=== PATIENT | female | born 1965 | race Caucasian/White ===

== ENCOUNTER → 2018-03-05 07:04 | Outpatient (CLI) | payer OTHER, SELFPAY ==
[2018-03-05 09:30] LABS: Alanine Aminotransferase 63 U/L (12-78); Albumin Level 3.8 gm/dL (3.4-5.0); Albumin/Globulin Ratio 1.1 (1.1-1.8); Alkaline Phosphatase 64 U/L (46-116); Anion Gap 17.1 mEq/L (5-15); Aspartate Amino Transferase 43 U/L (15-37); Bilirubin,Total 0.4 mg/dL (0.2-1.0); Blood Urea Nitrogen 18 mg/dL (7-18); Carbon Dioxide 25 mmol/L (21.0-32.0); Chloride 103 mmol/L (98-107); Chol/HDL Ratio 8.7 (1-3.5); Cholesterol 269 mg/dL (140-200); Creatinine,Serum 0.82 mg/dL (0.55-1.02); Estimated Glomerular Filt Rate 73 ml/min (>60); GFR (African American) 88 ML/MIN (>60); Globulin 3.4 gm/dl (1.3-3.2); Glucose 180 mg/dL (74-106); HDL Cholesterol 31 mg/dL (29-89); LDL Cholesterol 186 mg/dL (0-130); Potassium 4.1 mmoL/L (3.5-5.1); Sodium 141 mmol/L (136-145); Total Protein,Serum 7.2 gm/dL (6.4-8.2); Triglycerides 262 mg/dL (30-200); VLDL Cholesterol 52 mg/dL (0-40)
[2018-03-06 11:47] LABS: Hemoglobin A1C 8.1 % (0.0-7.0)
== END ==
PROVIDERS: Visit Provider Family Medicine
DX: E11.9 Type 2 diabetes mellitus without complications (principal); E78.5 Hyperlipidemia, unspecified
CPT/HCPCS: 80053; 80061; 83036

== ENCOUNTER → 2018-07-20 12:34 | Outpatient (CLI) | payer OTHER, SELFPAY ==
[2018-07-20 14:27] LABS: Hemoglobin A1C 7.9 % (0.0-7.0)
[2018-07-20 15:07] LABS: Alanine Aminotransferase 43 U/L (12-78); Albumin Level 3.6 gm/dL (3.4-5.0); Alkaline Phosphatase 76 U/L (46-116); Anion Gap 12.2 mEq/L (5-15); Aspartate Amino Transferase 21 U/L (15-37); Bilirubin,Total 0.4 mg/dL (0.2-1.0); Blood Urea Nitrogen 11 mg/dL (7-18); Calcium 9.3 mg/dL (8.5-10.1); Carbon Dioxide 30 mmol/L (21.0-32.0); Chloride 105 mmol/L (98-107); Chol/HDL Ratio 3.9 (1-3.5); Cholesterol 176 mg/dL (140-200); Creatinine,Serum 0.77 mg/dL (0.55-1.02); Estimated Glomerular Filt Rate 78 ml/min (>60); GFR (African American) 95 ML/MIN (>60); Globulin 3.6 gm/dl (1.3-3.2); Glucose 113 mg/dL (74-106); HDL Cholesterol 45 mg/dL (29-89); LDL Cholesterol 97 mg/dL (0-130); Potassium 4.2 mmoL/L (3.5-5.1); Sodium 143 mmol/L (136-145); Total Protein,Serum 7.2 gm/dL (6.4-8.2); Triglycerides 168 mg/dL (30-200); VLDL Cholesterol 34 mg/dL (0-40)
== END ==
PROVIDERS: PCP Family Medicine; Visit Provider Family Medicine
DX: E11.9 Type 2 diabetes mellitus without complications (principal)
CPT/HCPCS: 36415; 80053; 80061; 83036

== ENCOUNTER → 2019-05-24 08:25 | Outpatient (CLI) | payer OTHER, SELFPAY ==
[2019-05-24 08:52] LABS: Hemoglobin A1C 8.2 % (0.0-7.0)
[2019-05-24 10:12] LABS: Alanine Aminotransferase 63 U/L (12-78); Albumin Level 3.4 gm/dL (3.4-5.0); Alkaline Phosphatase 66 U/L (46-116); Anion Gap 11.5 mEq/L (5-15); Aspartate Amino Transferase 20 U/L (15-37); Bilirubin,Total 0.4 mg/dL (0.2-1.0); Blood Urea Nitrogen 13 mg/dL (7-18); Carbon Dioxide 29 mmol/L (21.0-32.0); Chloride 104 mmol/L (98-107); Chol/HDL Ratio 3.8 (1-3.5); Cholesterol 122 mg/dL (140-200); Creatinine,Serum 0.77 mg/dL (0.55-1.02); Estimated Glomerular Filt Rate 78 ml/min (>60); GFR (African American) 95 ML/MIN (>60); Globulin 3.3 gm/dl (1.3-3.2); Glucose 162 mg/dL (74-106); HDL Cholesterol 32 mg/dL (29-89); LDL Cholesterol 68 mg/dL (0-130); Potassium 4.5 mmoL/L (3.5-5.1); Sodium 140 mmol/L (136-145); Total Protein,Serum 6.7 gm/dL (6.4-8.2); Triglycerides 112 mg/dL (30-200); VLDL Cholesterol 22 mg/dL (0-40)
== END ==
PROVIDERS: Visit Provider Family Medicine
DX: E11.9 Type 2 diabetes mellitus without complications (principal); I10 Essential (primary) hypertension; E78.5 Hyperlipidemia, unspecified
CPT/HCPCS: 36415; 80053; 80061; 83036

== ENCOUNTER → 2019-11-29 08:42 | Outpatient (CLI) | payer OTHER, SELFPAY ==
[2019-11-29 13:29] LABS: Alanine Aminotransferase 48 U/L (9-52); Albumin Level 3.8 g/dL (3.4-5.0); Albumin/Globulin Ratio 1.2 (1.1-1.8); Alkaline Phosphatase 62 U/L (46-116); Anion Gap 14.1 mEq/L (5-15); Aspartate Amino Transferase 24 U/L (15-37); Bilirubin,Total 0.5 mg/dL (0.2-1.0); Blood Urea Nitrogen 22 mg/dL (7-18); Calcium 9.1 mg/dL (8.5-10.1); Carbon Dioxide 28 mmol/L (21.0-32.0); Chloride 106 mmol/L (98-107); Chol/HDL Ratio 3.8 (1-3.5); Cholesterol 130 mg/dL (140-200); Estimated Glomerular Filt Rate 87 ml/min (>60); GFR (African American) 105 ML/MIN (>60); Globulin 3.1 gm/dl (1.3-3.2); Glucose 127 mg/dL (74-106); HDL Cholesterol 34 mg/dL (29-89); LDL Cholesterol 73 mg/dL (0-130); Potassium 4.1 mmoL/L (3.5-5.1); Sodium 144 mmol/L (137-145); Total Protein,Serum 6.9 g/dL (6.4-8.2); Triglycerides 114 mg/dL (30-200); VLDL Cholesterol 23 mg/dL (0-40)
[2019-11-29 18:53] LABS: Hemoglobin A1C 7.2 % (0.0-7.0)
== END ==
LOC: LAB 08:44
PROVIDERS: Visit Provider Family Medicine
DX: E11.9 Type 2 diabetes mellitus without complications (principal); E78.5 Hyperlipidemia, unspecified; I10 Essential (primary) hypertension; Z79.84 Long term (current) use of oral hypoglycemic drugs
CPT/HCPCS: 36415; 80053; 80061; 83036

== ENCOUNTER 2020-07-25 18:35 | Emergency (ER) | payer OTHER, SELFPAY ==
[2020-07-25 19:10] VITALS: BP 132/78; PULSE 80; RESP 18; TEMP 36.7; O2SAT 98; BMI 34.4
--- NOTE | 2020-07-25 19:12 | HMH.EDUTC ---
[facility] [place] Disposition Clinical Impression: Exposure to COVID-19 virus Disposition: Home, Self-Care Condition on Discharge: Good Instructions: Preventing the Spread of Coronavirus Discharge Instructions Additional Instructions: Drink plenty of fluids. Take tylenol for pain or fever. Follow up with your regular doctor. GO TO THE ER FOR ANY WORSENING SYMPTOMS FOLLOW THE DIRECTIONS ON THE COVID-19 HAND OUT THAT WE GAVE YOU REGARDING SELF-ISOLATION UNTIL YOU KNOW YOUR COVID-19 RESULTS Referrals: Hay Petit MD [Primary Care Provider] - Time of Disposition: 19:13 Medical Decision Making - Medical Records Medical records reviewed: No: I reviewed the patient's medical records. - Erasto Inquiry Pt receiving controlled substance: No Vital Signs: 07/25/20 19:10 07/25/20 19:18 Temperature 98.1 F 98.1 F Temperature Source Oral Pulse Rate 80 Pulse Rate [Right Brachial] 80 Respiratory Rate 18 18 Blood Pressure 132/78 Blood Pressure [Right Arm] 132/78 Blood Pressure Mean [Right Arm] 96 Blood Pressure Source [Right Arm] Automatic Cuff Blood Pressure Position [Right Arm] Sitting 02 Sat by Pulse Oximetry 98 Oxygen Delivery Method Room Air Orders (Tests/Meds): ORDERS Category Date Time Status Covid-19 Nasal PCR ([facility]) Routine Lab 07/25/20 19:30 Received [facility] [place] HPI - General Stated complaint: covid test Time Seen by Provider: 07/25/20 19:12 - History of Present Illness Provider Complaint: She is here after being exposed to covid in her household. She denies any symptoms. - Related Data Home Medications Medication Instructions Recorded Confirmed atorvastatin 80 mg tablet 80 mg PO DAILY 08/15/19 10/06/19 diclofenac sodium 25 mg 25 mg PO BID 08/15/19 10/06/19 tablet,delayed release glimepiride 4 mg tablet 4 mg PO DAILY 08/15/19 10/06/19 lisinopril 2.5 mg tablet 2.5 mg PO DAILY 08/15/19 10/06/19 metformin 500 mg tablet 500 mg PO BID 08/15/19 10/06/19 Dapagliflozin Propanediol [Farxiga] 10 mg PO DAILY 09/15/19 10/06/19 Allergies Allergy/AdvReac Type Severity Reaction Status Date / Time No Known Drug Allergies Allergy Unknown Verified 10/06/19 13:20 [NKDA] [facility] History - Hepatitis A Screen Attestation statement:: This patient has been screened for Hepatitis A risk factors. I have reviewed the patient's past medical history: Yes Medical History: Reports:: Diabetes Mellitus Type 2, Hypertension Denies:: Cancer, MRSA, Seizures Laterality Cases: Bilateral: Breast Biopsy Other Surgeries: Yes: Colonoscopy, Other Amputation: No - Social History Smoking Status: Never smoker Alcohol Intake: never Substance Use Type: denies use Occupational Status: employed Family Hx:: No significant family history ROS Obtained: Yes All systems reviewed & no additional complaints - Constitutional Constitutional: Reports system reviewed and no additional complaints, except as docu, Denies chills, Denies fever(s) - Eyes Eyes: Denies eye discharge - ENT Ears, Nose, Mouth, and Throat: Reports system reviewed and no additional complaints, except as docu, Denies dizziness, Denies otalgia, Denies sore throat - Cardiovascular Cardiovascular: Reports system reviewed and no additional complaints, except as docu, Denies chest pain, Denies dyspnea - Respiratory Respiratory: Yes system reviewed and no additional complaints, except as docu, No chest congestion, No cough Physical Exam - General General appearance: alert, in no apparent distress - Head Head exam: atraumatic, normocephalic, normal inspection - Eye Eye exam: Present: normal appearance, PERRL, EOMI - ENT ENT exam: Present: normal exam, normal oropharynx, mucous membranes moist, TM's normal bilaterally, normal external ear exam - Neck Neck exam: Present: normal inspection, full ROM, trachea midline. Absent: meningismus, lymphadenopathy - Chest Chest inspection: Present: normal inspection,
[2020-07-25 19:18] VITALS: BP 132/78; PULSE 80; RESP 18; TEMP 36.7; O2SAT 98
== END 2020-07-25 19:20 | disposition home or self-care (01) ==
PROVIDERS: Emergency Provider Nurse Practitioner Family; PCP Family Medicine
DX: Z20.828 Contact with and (suspected) exposure to other viral communicable diseases (principal); E11.9 Type 2 diabetes mellitus without complications; I10 Essential (primary) hypertension; Z79.899 Other long term (current) drug therapy
CPT/HCPCS: 99201; U0003

== ENCOUNTER → 2020-10-13 09:52 | Outpatient (CLI) | payer OTHER, SELFPAY ==
[2020-10-13 11:05] LABS: Hemoglobin A1C 8.9 % (4.0-6.0)
[2020-10-13 11:45] LABS: Chloride 101 mmol/L (98-107)
[2020-10-13 11:46] LABS: Potassium 4.7 mmoL/L (3.5-5.1); Sodium 138 mmol/L (136-145)
[2020-10-13 11:48] LABS: Alanine Aminotransferase 42 U/L (12-78); Alkaline Phosphatase 85 U/L (38-126); Anion Gap 15.7 mEq/L (5-15); Aspartate Amino Transferase 31 U/L (14-36); Bilirubin,Total 0.6 mg/dl (0.2-1.3); Blood Urea Nitrogen 14 mg/dl (7-17); Carbon Dioxide 26 mmol/L (22.0-30.0); Cholesterol 285 mg/dl (140-200); Estimated Glomerular Filt Rate 104 ml/min (>60); GFR (African American) 126 ML/MIN (>60); Triglycerides 348 mg/dl (30-150); VLDL Cholesterol 70 mg/dL (0-40)
[2020-10-13 11:49] LABS: Albumin Level 4.4 g/dl (3.5-5.0); Albumin/Globulin Ratio 1.4 (1.1-1.8); Calcium 9.8 mg/dl (8.4-10.2); Chol/HDL Ratio 6.3 (1-3.5); Globulin 3.1 g/dL (1.3-3.2); Glucose 256 mg/dl (74-100); HDL Cholesterol 45 mg/dl (40-60); Total Protein,Serum 7.5 g/dl (6.3-8.2)
[2020-10-13 12:00] LABS: Direct LDL Cholesterol 180.24 mg/dL (100-129)
== END ==
PROVIDERS: Visit Provider Family Medicine
DX: E11.9 Type 2 diabetes mellitus without complications (principal); E78.5 Hyperlipidemia, unspecified; I10 Essential (primary) hypertension; Z79.84 Long term (current) use of oral hypoglycemic drugs
CPT/HCPCS: 36415; 80053; 80061; 83036

== ENCOUNTER → 2020-10-27 07:42 | Outpatient (CLI) | payer OTHER, SELFPAY ==
--- NOTE | 2020-10-27 07:49 | CT_ITS ---
PROCEDURE: CT SINUS WO CON CLINICAL HISTORY: ear aches for 6 months Facial pain H/o nasal polyps removed 15 years ago COMPARISON: No exams were available for comparison TECHNIQUE: Axial images obtained with sagittal and coronal reformats. All CT scans at the facility use one or more dose reduction, viz: automated exposure control, ma/kV adjustment per patient size (including targeted exams where dose is matched to indication, i.e. head), or iterative reconstruction technique. FINDINGS: The frontal sinus has an unremarkable appearance. Unremarkable appearing ethmoid sinuses. Lobular mucosal thickening is present in the floor the left maxillary sinus at 17 mm consistent with a retention cyst. There is minimal mucosal thickening of the floor the right maxillary sinus. The ostiomeatal units are patent. There is minimal leftward nasal septal deviation. The sphenoid sinus has an unremarkable appearance. There is some minimal frothy material within the posterior aspect of the left ethmoid sinus. Unremarkable appearing mastoid sinuses. TMJs are unremarkable. No fluid evident within the middle ears. IMPRESSION: Left maxillary sinus retention cyst with minimal mucosal thickening of the right maxillary sinus and minimal frothy material within the left ethmoid sinus posteriorly otherwise negative. No evidence of acute sinusitis. Dictated by: Jeronimo Castellanos MD 10/28/2020 18:32 Jeronimo Castellanos MD in [place] 10/28/2020 18:32
== END ==
LOC: RAD 07:42
PROVIDERS: PCP Family Medicine; Visit Provider Family Medicine
DX: R51.9 Headache, unspecified (principal); Z87.09 Personal history of other diseases of the respiratory system
CPT/HCPCS: 70486

== ENCOUNTER → 2021-06-02 12:35 | Outpatient (CLI) | payer OTHER, SELFPAY ==
[2021-06-02 13:20] LABS: Chloride 100 mmol/L (98-107); Sodium 138 mmol/L (136-145)
[2021-06-02 13:21] LABS: Potassium 4.2 mmoL/L (3.5-5.1)
[2021-06-02 13:23] LABS: Alanine Aminotransferase 29 U/L (12-78); Albumin Level 4.3 g/dl (3.5-5.0); Albumin/Globulin Ratio 1.5 (1.1-1.8); Alkaline Phosphatase 90 U/L (38-126); Anion Gap 14.2 mEq/L (5-15); Aspartate Amino Transferase 25 U/L (14-36); Bilirubin,Total 0.6 mg/dl (0.2-1.3); Blood Urea Nitrogen 16 mg/dl (7-17); Calcium 9.6 mg/dl (8.4-10.2); Carbon Dioxide 28 mmol/L (22.0-30.0); Cholesterol 299 mg/dl (140-200); Estimated Glomerular Filt Rate 87 ml/min (>60); GFR (African American) 105 ML/MIN (>60); Globulin 2.9 g/dL (1.3-3.2); Glucose 225 mg/dl (74-100); Total Protein,Serum 7.2 g/dl (6.3-8.2); Triglycerides 337 mg/dl (30-150); VLDL Cholesterol 67 mg/dL (0-40)
[2021-06-02 13:24] LABS: Chol/HDL Ratio 7.7 (1-3.5); HDL Cholesterol 39 mg/dl (40-60)
[2021-06-02 13:35] LABS: Direct LDL Cholesterol 196.77 mg/dL (100-129)
[2021-06-02 13:59] LABS: Hemoglobin A1C 10.6 % (4.0-6.0)
== END ==
LOC: LAB 12:36
PROVIDERS: Visit Provider Family Medicine
DX: I10 Essential (primary) hypertension (principal); E78.5 Hyperlipidemia, unspecified; E11.9 Type 2 diabetes mellitus without complications; Z79.84 Long term (current) use of oral hypoglycemic drugs
CPT/HCPCS: 36415; 80053; 80061; 83036

== ENCOUNTER → 2021-10-12 11:01 | Outpatient (CLI) | payer OTHER, SELFPAY ==
[2021-10-12 11:45] LABS: Hemoglobin A1C 9.3 % (4.0-6.0)
[2021-10-12 12:17] LABS: Chloride 101 mmol/L (98-107)
[2021-10-12 12:18] LABS: Potassium 4.4 mmoL/L (3.5-5.1); Sodium 140 mmol/L (136-145)
[2021-10-12 12:20] LABS: Alanine Aminotransferase 48 U/L (12-78); Alkaline Phosphatase 72 U/L (38-126); Aspartate Amino Transferase 41 U/L (14-36); Bilirubin,Total 0.4 mg/dl (0.2-1.3); Blood Urea Nitrogen 17 mg/dl (7-17); Estimated Glomerular Filt Rate 74 ml/min (>60); GFR (African American) 90 ML/MIN (>60)
[2021-10-12 12:21] LABS: Albumin Level 4.6 g/dl (3.5-5.0); Albumin/Globulin Ratio 1.6 (1.1-1.8); Anion Gap 16.4 mEq/L (5-15); Calcium 9.9 mg/dl (8.4-10.2); Carbon Dioxide 27 mmol/L (22.0-30.0); Cholesterol 156 mg/dl (140-200); Globulin 2.9 g/dL (1.3-3.2); Glucose 216 mg/dl (74-100); HDL Cholesterol 43 mg/dl (40-60); Total Protein,Serum 7.5 g/dl (6.3-8.2); Triglycerides 256 mg/dl (30-150); VLDL Cholesterol 51 mg/dL (0-40)
[2021-10-12 15:57] LABS: Chol/HDL Ratio 3.6 (1-3.5)
== END ==
PROVIDERS: Visit Provider Family Medicine
DX: I10 Essential (primary) hypertension (principal); E11.9 Type 2 diabetes mellitus without complications; Z79.84 Long term (current) use of oral hypoglycemic drugs
CPT/HCPCS: 36415; 80053; 80061; 83036

== ENCOUNTER → 2022-05-02 07:15 | Outpatient (CLI) | payer OTHER, SELFPAY ==
[2022-05-02 08:43] LABS: Hemoglobin A1C 9.7 % (4.0-6.0)
[2022-05-02 08:47] LABS: Alanine Aminotransferase 36 U/L (12-78); Albumin Level 3.8 g/dl (3.5-5.0); Albumin/Globulin Ratio 1.5 (1.1-1.8); Alkaline Phosphatase 68 U/L (38-126); Anion Gap 12.5 mEq/L (5-15); Aspartate Amino Transferase 30 U/L (14-36); Blood Urea Nitrogen 13 mg/dl (7-17); Calcium 9.3 mg/dl (8.4-10.2); Carbon Dioxide 28 mmol/L (22.0-30.0); Chloride 102 mmol/L (98-107); Chol/HDL Ratio 3.8 (1-3.5); Cholesterol 120 mg/dl (140-200); Estimated Glomerular Filt Rate 74 ml/min (>60); GFR (African American) 89 ML/MIN (>60); Globulin 2.5 g/dL (1.3-3.2); Glucose 208 mg/dl (74-100); HDL Cholesterol 32 mg/dl (40-60); Potassium 4.5 mmoL/L (3.5-5.1); Sodium 138 mmol/L (136-145); Total Protein,Serum 6.3 g/dl (6.3-8.2); Triglycerides 194 mg/dl (30-150); VLDL Cholesterol 39 mg/dL (0-40)
[2022-05-02 08:59] LABS: Bilirubin,Total < 0.1 mg/dl (0.2-1.3)
[2022-05-02 09:05] LABS: Direct LDL Cholesterol 52.28 mg/dL (100-129)
== END ==
PROVIDERS: PCP Family Medicine; Visit Provider Family Medicine
DX: I10 Essential (primary) hypertension (principal); E78.5 Hyperlipidemia, unspecified; E11.9 Type 2 diabetes mellitus without complications; Z79.84 Long term (current) use of oral hypoglycemic drugs
CPT/HCPCS: 36415; 80053; 80061; 83036

== ENCOUNTER → 2022-11-04 11:06 | Outpatient (CLI) | payer OTHER, SELFPAY ==
[2022-11-04 12:22] LABS: Creatinine,Urine Random 135 mg/dL (Not Estab.)
[2022-11-04 12:25] LABS: Alanine Aminotransferase 37 U/L (12-78); Albumin Level 4.3 g/dl (3.5-5.0); Albumin/Globulin Ratio 1.7 (1.1-1.8); Alkaline Phosphatase 72 U/L (38-126); Anion Gap 12.8 mEq/L (5-15); Aspartate Amino Transferase 31 U/L (14-36); Bilirubin,Total 0.5 mg/dl (0.2-1.3); Blood Urea Nitrogen 11 mg/dl (7-17); Carbon Dioxide 29 mmol/L (22.0-30.0); Chloride 102 mmol/L (98-107); Chol/HDL Ratio 3.2 (1-3.5); Cholesterol 122 mg/dl (140-200); Estimated Glomerular Filt Rate 86 ml/min (>60); GFR (African American) 104 ML/MIN (>60); Globulin 2.6 g/dL (1.3-3.2); Glucose 189 mg/dl (74-100); HDL Cholesterol 38 mg/dl (40-60); Microalbumin/Creatinine Ratio 52.2; Potassium 3.8 mmoL/L (3.5-5.1); Sodium 140 mmol/L (136-145); Total Protein,Serum 6.9 g/dl (6.3-8.2); Triglycerides 161 mg/dl (30-150); VLDL Cholesterol 32 mg/dL (0-40)
[2022-11-04 12:36] LABS: Direct LDL Cholesterol 56.55 mg/dL (100-129)
[2022-11-04 13:03] LABS: Hemoglobin A1C 9.9 % (4.0-6.0)
== END ==
PROVIDERS: PCP Family Medicine; Visit Provider Family Medicine
DX: E11.9 Type 2 diabetes mellitus without complications (principal); E78.5 Hyperlipidemia, unspecified; I10 Essential (primary) hypertension; Z79.84 Long term (current) use of oral hypoglycemic drugs
CPT/HCPCS: 36415; 80053; 80061; 82043; 82570; 83036

== ENCOUNTER → 2023-05-12 10:56 | Outpatient (CLI) | payer OTHER, SELFPAY ==
[2023-05-12 11:37] LABS: Chloride 103 mmol/L (98-107); Hemoglobin A1C 8.4 % (4.0-6.0)
[2023-05-12 11:38] LABS: Potassium 4.3 mmoL/L (3.5-5.1); Sodium 140 mmol/L (136-145)
[2023-05-12 11:40] LABS: Alanine Aminotransferase 36 U/L (12-78); Anion Gap 14.3 mEq/L (5-15); Aspartate Amino Transferase 27 U/L (14-36); Blood Urea Nitrogen 16 mg/dl (7-17); Carbon Dioxide 27 mmol/L (22.0-30.0); Estimated Glomerular Filt Rate 74 ml/min (>60); GFR (African American) 89 ML/MIN (>60)
[2023-05-12 11:41] LABS: Albumin Level 4.4 g/dl (3.5-5.0); Albumin/Globulin Ratio 1.7 (1.1-1.8); Alkaline Phosphatase 78 U/L (38-126); Bilirubin,Total 0.4 mg/dl (0.2-1.3); Chol/HDL Ratio 2.8 (1-3.5); Cholesterol 124 mg/dl (140-200); Globulin 2.6 g/dL (1.3-3.2); Glucose 172 mg/dl (74-100); HDL Cholesterol 44 mg/dl (40-60); Triglycerides 121 mg/dl (30-150); VLDL Cholesterol 24 mg/dL (0-40)
[2023-05-12 11:52] LABS: Direct LDL Cholesterol 62.43 mg/dL (100-129)
== END ==
PROVIDERS: PCP Family Medicine; Visit Provider Family Medicine
DX: I10 Essential (primary) hypertension (principal); E78.5 Hyperlipidemia, unspecified; E11.9 Type 2 diabetes mellitus without complications; Z79.84 Long term (current) use of oral hypoglycemic drugs
CPT/HCPCS: 36415; 80053; 80061; 83036

== ENCOUNTER 2023-10-12 06:21 | Day surgery (SDC) | payer OTHER, SELFPAY ==
[2023-10-10 10:54] VITALS: BMI 30.7
[2023-10-12 06:33] VITALS: BP 128/73; PULSE 87; RESP 18; TEMP 36.2; O2SAT 99
[2023-10-12] MEDS: LACTATED RINGERS 1000ML 1,000 ML 25 ML IV (06:33)
--- NOTE | 2023-10-12 06:57 | EXP.ANES.CKL ---
[facility] Disclaimer: The information contained in this section may have been updated after the patient was seen, as this information can be updated by other users. Medical History Diabetes mellitus, type 2 Hypertension Surgical History Hx of sinus surgery Family History Other Family history of cancer Family history of diabetes mellitus type II Family history of hypertension Social History Smoking Status: Never smoker alcohol intake: never substance use type: denies use current occupational status: employed Travel in the last 8 weeks: Inside the [place] caffeine: Yes [facility] Anesthesia Checklist Patient Identification Patient Identification: Arm Band and Family Structural Data Admitted From: Home Planned Operative Procedure/s: Colonoscopy Consent for Planned Operative Procedure(s) Verified: Yes Verified Documents: Surgical Consent and History and Physical NPO Status Verified Time NPO: 00:00 Additional verifications Patient : No Anesthesia Reactions: No Hx Blood Transfusions: No Blood Transfusion Reaction: No Previous Colonoscopy: Yes Airway Assessment Mallampati Score:: Class III C-Spine Mobility Assessed: Yes TMJ Mobility Assessed: Yes Dentition: Good Dentition Neurological Assessment Level of Consciousness: Awake, Appropriate and Follows Commands Hx Seizures: No Numbness or tingling in extremities: No Anesthesia Plan Anesthesia Risk discussed: Yes ASA Class: II Anesthesia Type: MAC Preoperative Comments Pre-Operative Comments: Hypertension/ NIDDM.
--- NOTE | 2023-10-12 07:02 | HMH.SCOPE ---
Procedure: Date: 10/12/23 Patient Date of :: 1965 Procedure Performed:: Total colonoscopy to terminal ileum with multiple polypectomy Indications:: Patient is a 57-year-old female who presents for follow-up surveillance colonoscopy. She had colonoscopy in 2014 with multiple polyps, mostly hyperplastic, however she had 1 serrated adenoma. She underwent follow-up colonoscopy on 09/16/2019 at which time she had multiple hyperplastic polyps. Due to the fact that she had a serrated adenoma recommendations were for 3-year follow-up colonoscopy. Performing Provider:: Rupesh Fofana MD Referring Provider:: Solis Petit MD Sedation:: MAC sedation Procedure:: Patient history was obtained and appropriate physical examination was performed. Patient's medications and allergies were reviewed. Informed consent was obtained after explaining the benefits, alternatives, and risks of the procedure including, but not limited to, bleeding, perforation, missed lesions, and adverse reaction to anesthesia medications. Patient was transported to endoscopy procedure room. Patient was connected to monitoring devices. Throughout the procedure the patient's blood pressure, pulse, and oxygen saturations were monitored continuously. Patient identification and planned procedure were verified by the staff. Patient was positioned in lateral decubitus position. Digital anorectal exam was performed. Variable stiffness Olympus colonoscope was inserted and advanced under direct visualization to the cecum. Adequacy of the colonic preparation was noted. The colonoscope was advanced a short distance into the terminal ileum. The colonoscope was then slowly withdrawn while carefully examining the color, texture, anatomy, and integrity of the mucosoa circumferentially. Within the rectum retroflexion was performed. Colonoscope was then withdrawn. . There was some mucousy stool present within the colon. This was able to be cleared. In the cecum there is a moderately large polyp measuring greater than 10 mm removed with hot snare which required retrieval using Tenorio net after maceration. Also in the cecum there was a small adenomatous polyp removed with cold snare. There was a tiny diminutive polyp which appeared adenomatous in the cecum removed with biopsy forceps. In the descending colon there was a small diminutive adenomatous appearing polyp removed with cold snare. In the sigmoid colon there was a possible hyperplastic polyp removed with biopsy forceps. Retroflexion within the rectum revealed some prolapsing hemorrhoid cushions. Colonoscope was withdrawn. . Findings:: Polyps as noted above. She had what appeared to be 4 adenomatous polyps with the largest being in the cecum measuring greater than 10 mm removed with hot snare. Prolapsing hemorrhoid cushions Recommendations:: Follow-up colonoscopy pending pathology. Likely 2 to 3 years Complications:: None immediately apparent Estimated blood obtained (mL): 3 Colonoscopy Component Colonoscopy Component Was a colonoscopy performed during today's procedure?: Yes Recommended follow up colonoscopy of at least 10 years?: No If no, follow up colonoscopy recommended in ___ years?: See above Reason for not recommending >/= 10 yr follow-up interval?: See above
[2023-10-12 07:21] VITALS: O2SAT 99
[2023-10-12 08:03] VITALS: BP 103/59; PULSE 83; RESP 18; TEMP 36.1; O2SAT 95
[2023-10-12 08:13] VITALS: BP 109/75; PULSE 92; RESP 18; O2SAT 96
[2023-10-12 08:23] VITALS: BP 114/81; PULSE 87; RESP 18; O2SAT 97
[2023-10-12 08:35] VITALS: BP 134/78; PULSE 84; RESP 18; O2SAT 98
[2023-10-12 09:09] LABS: POC Glucose,Bedside 135 (70-110)
== END 2023-10-12 08:45 | disposition home or self-care (01) ==
PROVIDERS: PCP Family Medicine; Visit Provider Surgery
PROC: 0DJD8ZZ Inspection of Lower Intestinal Tract, Via Natural or Artificial Opening Endoscopic (ICD-10-PCS; CPT 45385; principal; 2023-10-12 07:30)
DX: Z12.11 Encounter for screening for malignant neoplasm of colon (principal); Z86.010 Personal history of colon polyps; D12.0 Benign neoplasm of cecum; D12.4 Benign neoplasm of descending colon; E11.9 Type 2 diabetes mellitus without complications
CPT/HCPCS: 45385; 45380; 82962

== ENCOUNTER 2023-11-24 08:35 | Outpatient (CLI) | payer BC, SELFPAY ==
[2023-11-24 09:27] LABS: Creatinine,Urine Random 61 mg/dL (Not Estab.)
[2023-11-24 09:34] LABS: Chloride 104 mmol/L (98-107); Potassium 4.3 mmoL/L (3.5-5.1); Sodium 139 mmol/L (136-145)
[2023-11-24 09:36] LABS: Alanine Aminotransferase 30 U/L (12-78); Aspartate Amino Transferase 31 U/L (14-36); Blood Urea Nitrogen 15 mg/dl (7-17); Estimated Glomerular Filt Rate 102 ml/min (>60); GFR (African American) 124 ML/MIN (>60)
[2023-11-24 09:37] LABS: Albumin Level 4.3 g/dl (3.5-5.0); Albumin/Globulin Ratio 1.6 (1.1-1.8); Alkaline Phosphatase 75 U/L (38-126); Anion Gap 13.3 mEq/L (5-15); Bilirubin,Total 0.4 mg/dl (0.2-1.3); Calcium 9.6 mg/dl (8.4-10.2); Carbon Dioxide 26 mmol/L (22.0-30.0); Cholesterol 127 mg/dl (140-200); Globulin 2.7 g/dL (1.3-3.2); Glucose 216 mg/dl (74-100); Triglycerides 111 mg/dl (30-150); VLDL Cholesterol 22 mg/dL (0-40)
[2023-11-24 09:38] LABS: Chol/HDL Ratio 3.3 (1-3.5); HDL Cholesterol 38 mg/dl (40-60)
[2023-11-24 09:44] LABS: Hemoglobin A1C 9.2 % (4.0-6.0)
[2023-11-24 09:48] LABS: Direct LDL Cholesterol 63.64 mg/dL (100-129)
== END 2023-11-24 23:59 ==
PROVIDERS: PCP Family Medicine; Visit Provider Family Medicine
DX: E11.9 Type 2 diabetes mellitus without complications (principal); E78.5 Hyperlipidemia, unspecified; I10 Essential (primary) hypertension
CPT/HCPCS: 36415; 80053; 80061; 82043; 82570; 83036

== ENCOUNTER 2024-05-24 08:17 | Outpatient (CLI) | payer BC, SELFPAY ==
[2024-05-24 09:08] LABS: Albumin Level 4.1 g/dl (3.5-5.0); Chloride 108 mmol/L (98-107); Sodium 140 mmol/L (136-145)
[2024-05-24 09:11] LABS: Alanine Aminotransferase 23 U/L (12-78); Albumin/Globulin Ratio 1.5 (1.1-1.8); Aspartate Amino Transferase 24 U/L (14-36); Blood Urea Nitrogen 14 mg/dl (7-17); Carbon Dioxide 25 mmol/L (22.0-30.0); Estimated Glomerular Filt Rate 86 ml/min (>60); GFR (African American) 104 ML/MIN (>60); Globulin 2.7 g/dL (1.3-3.2); Total Protein,Serum 6.8 g/dl (6.3-8.2)
[2024-05-24 09:12] LABS: Alkaline Phosphatase 70 U/L (38-126); Bilirubin,Total 0.5 mg/dl (0.2-1.3); Calcium 9.1 mg/dl (8.4-10.2); Chol/HDL Ratio 3.3 (1-3.5); Cholesterol 147 mg/dl (140-200); Glucose 147 mg/dl (74-100); HDL Cholesterol 45 mg/dl (40-60); Triglycerides 199 mg/dl (30-150); VLDL Cholesterol 40 mg/dL (0-40)
[2024-05-24 09:22] LABS: Direct LDL Cholesterol 65.77 mg/dL (100-129)
[2024-05-24 09:46] LABS: Hemoglobin A1C 11.3 % (4.0-6.0)
== END 2024-05-24 23:59 | disposition home or self-care (01) ==
LOC: LAB 08:18
PROVIDERS: PCP Family Medicine; Visit Provider Family Medicine
DX: E78.5 Hyperlipidemia, unspecified (principal); I10 Essential (primary) hypertension; E11.9 Type 2 diabetes mellitus without complications
CPT/HCPCS: 36415; 80053; 80061; 83036

== ENCOUNTER 2024-11-22 08:39 | Outpatient (CLI) | payer BC, SELFPAY ==
[2024-11-22 09:07] LABS: Basophils # 0.1 K/mm3 (0-0.2); Basophils % 0.9 % (0.1-2.0); Eosinophils # 0.2 K/mm3 (0.0-0.4); Eosinophils % 3.8 % (0.1-12.0); Hematocrit 41.9 % (37.0-47.0); Hemoglobin 13.5 g/dL (12.2-16.2); Lymphocytes # 1.8 K/mm3 (0.7-4.5); Mean Corpuscular HGB Conc 32.2 g/dL (31.8-35.4); Mean Corpuscular Hemoglobin 28.8 pg (27.0-31.2); Mean Corpuscular Volume 89.3 fl (81-99); Mean Platelet Volume 9.7 fl (7.4-10.4); Monocytes # 0.4 K/mm3 (0.1-1.0); Monocytes % 7.6 % (1.7-9.3); Neutrophils # 3.1 K/mm3 (1.8-7.8); Neutrophils % 55.3 % (37.0-80.0); Platelet Count 281 K/mm3 (142-424); Red Blood Count 4.69 M/mm3 (4.20-5.40); Red Cell Distribution Width 12.7 % (11.5-17.5); White Blood Count 5.6 K/mm3 (4.8-10.8)
[2024-11-22 09:20] LABS: Creatinine,Urine Random 76 mg/dL (Not Estab.)
[2024-11-22 09:42] LABS: Hemoglobin A1C 7.9 % (4.0-6.0)
[2024-11-22 10:21] LABS: Alanine Aminotransferase 27 U/L (12-78); Albumin Level 4.4 g/dl (3.5-5.0); Alkaline Phosphatase 54 U/L (38-126); Anion Gap 17.9 mEq/L (5-15); Aspartate Amino Transferase 29 U/L (14-36); Bilirubin,Total 0.3 mg/dl (0.2-1.3); Blood Urea Nitrogen 17 mg/dl (7-17); Calcium 9.4 mg/dl (8.4-10.2); Carbon Dioxide 26 mmol/L (22.0-30.0); Chloride 99 mmol/L (98-107); Chol/HDL Ratio 3.4 (1-3.5); Cholesterol 118 mg/dl (140-200); Estimated Glomerular Filt Rate 102 ml/min (>60); GFR (African American) 123 ML/MIN (>60); Globulin 2.2 g/dL (1.3-3.2); Glucose 130 mg/dl (74-100); HDL Cholesterol 35 mg/dl (40-60); Potassium 3.9 mmoL/L (3.5-5.1); Sodium 139 mmol/L (136-145); Total Protein,Serum 6.6 g/dl (6.3-8.2); Triglycerides 121 mg/dl (30-150); VLDL Cholesterol 24 mg/dL (0-40)
[2024-11-22 10:32] LABS: Direct LDL Cholesterol 52.74 mg/dL (100-129)
== END 2024-11-22 23:59 | disposition home or self-care (01) ==
LOC: LAB 08:44
PROVIDERS: PCP Family Medicine; Visit Provider Family Medicine
DX: E78.5 Hyperlipidemia, unspecified (principal); E11.9 Type 2 diabetes mellitus without complications; I10 Essential (primary) hypertension
CPT/HCPCS: 36415; 80053; 80061; 82043; 82570; 83036; 85025

== ENCOUNTER 2025-01-29 12:15 | Outpatient (CLI) | payer BC, SELFPAY ==
--- NOTE | 2025-01-29 12:34 | ECG_ITS ---
APPROVED REPORT Exam: Resting ECG HR:97 bpm ECG Measurements Heart Rate 97 AXES VT 145 P 27 QRSd 84 QRS -3 QT 337 T 14 QTc 392 Conclusion SINUS RHYTHM LOW QRS VOLTAGE IN PRECORDIAL LEADS [QRS DEFLECTION < 1.0 mV IN CHEST LEADS] POSSIBLE ANTERIOR MYOCARDIAL INFARCTION , PROBABLY OLD [30 ms Q WAVE IN V3/V4, OR R < 0.2 mV IN V4] INFERIOR MYOCARDIAL INFARCTION , PROBABLY OLD [40+ ms Q WAVE AND/OR ST/T ABNORMALITY IN II/aVF] ABNORMAL ECG UNCONFIRMED REPORT Electronically signed by : Alexander Puri MD 01/30/2025 09:39:01
[2025-01-29 12:58] LABS: Creatine Kinase 52 U/L (30-135)
[2025-01-29 13:09] LABS: CKMB Relative Index 0.8 U/L (0-4.0); Creatine Kinase MB 0.4 ng/ml (0.0-2.03)
[2025-01-29 13:12] LABS: Troponin I < 0.01 ng/ml (0.00-0.034)
== END 2025-01-29 23:59 | disposition home or self-care (01) ==
LOC: RT 12:16
PROVIDERS: PCP Family Medicine; Visit Provider Physician Assistant
DX: R07.9 Chest pain, unspecified (principal); R94.31 Abnormal electrocardiogram [ECG] [EKG]
CPT/HCPCS: 36415; 82550; 82553; 84484; 93005

== ENCOUNTER 2025-02-18 07:16 | Outpatient (CLI) | payer BC, SELFPAY ==
--- NOTE | 2025-02-18 | CA_ITS ---
APPROVED REPORT Exam: Exercise Treadmill Technologist: Edilia Crump Ht: 5 ft 6 in Wt: 201 lbs BSA: 2.00 m2 HR: 88 bpm BP: 141/86 mmHg Stress Test Details Test: Exercise stress testing was performed using a Matt protocol. HR Resting HR: 88 bpm Max Heart Rate (APMHR): 160 bpm Max HR Achieved: 163 bpm Target HR (85% APMHR): 136 bpm % of APMHR: 102 Recovery HR: 115 bpm HR response to stress: Normal HR response to stress BP Resting BP: 141.0/86.0 mmHg Max BP: 208.0/88.0 mmHg Recovery BP: 159.0/84.0 mmHg BP response to stress: Abnormal hypertensive response to stress. ECG Resting ECG: NSR Stress EC.[address] depression Clinical Exercise duration: 5.08 min Exercise capacity: 7.1 METs Stress ECG Conclusion Symptoms: Shortness of breath with peak exercise. Arrhythmias/Ectopy: None ST-T Changes: 0.[address] segment changes. Conclusion: Average exercise capacity. Hypertensive BP response to exercise. No ECG evidence of ischemia at peak stress. Myoview images are reported separately. Electronically signed by : Jeannine Rosa MD 02/18/2025 13:05:04
--- NOTE | 2025-02-18 07:30 | NM_ITS ---
APPROVED REPORT Exam: Nuclear Stress Test Indication: htn, diabetes, hyperlipidemia, fm hx, c.p., abn ekg Patient Location: Outpatient Stress Tech: Edilia Crump CT Tech:DARNLEL Bruno RT (R)(N)(M) Ht: 5 ft 6 in Wt: 197 lbs Bra Size: 38c HR: 88 bpm BP: 141/86 mmHg BSA: 1.99 m2 TID: 1.09 BMI: 31.7 History: htn, diabetes, hyperlipidemia, fm hx, c.p., abn ekg Procedure: Patient exercised on Matt protocol 5:08 minutes and sec, resting heart rate 88 bpm, resting blood pressure 141/86 mmHg, with exercise maximum heart rate achived was 164 bpm which is 102 % of the maximum predicted heart rate and blood pressure was 200/90 mmHg. Test was stopped due to fatigue. Patient denied any complaint of chest pain. Patient has Average exercise capacity, achieved 7.1 METs of workload on treadmill, the blood pressure response to exercise was Exaggerated. Cardiac Stress and Resting SPECT Images: Cardiac Stress and Resting SPECT images were obtained using technetium 99m Myoview 31.0 mCi stress and 10.45 mCi at rest. Resting and stress imaging in supine and prone positions demonstrate no evidence of fixed or reversible perfusion defects. Gated imaging demonstrates normal global and regional LV systolic function. LVEF is calculated at 64%. Conclusion: No evidence of fixed or reversible perfusion defects. Gated imaging demonstrates normal global and regional LV systolic function. LVEF is calculated at 64%. Of note, the patient had a hypertensive BP response to exercise. BP control is recommended. Electronically signed by : Jeannine Rosa MD 02/18/2025 12:58:50
[2025-02-18] MEDS: ISOTOPE MYOVIEW (PER STUDY) 1 DOSE IV (09:35)
[2025-02-18] MEDS: SODIUM CHLORIDE 0.9% 10ML SYR (RAD ONLY) 10 ML IV ×2 (09:35→09:42)
== END 2025-02-18 23:59 | disposition home or self-care (01) ==
PROVIDERS: PCP Family Medicine; Visit Provider Physician Assistant
DX: R94.31 Abnormal electrocardiogram [ECG] [EKG] (principal); R07.9 Chest pain, unspecified; R42 Dizziness and giddiness
CPT/HCPCS: 78452; 93017; 93018; 93306; A9502

== ENCOUNTER 2025-05-28 08:45 | Outpatient (CLI) | payer BC, SELFPAY ==
--- OUTSIDE RECORDS SUMMARY | 2024-11-25 11:45 | XMS_ITS ---
Author Organization [facility] Address [address] [id number] Care Team Providers Care Wallpaperer Name Role Phone Lea Petit Primary Care Provider Allergies No Known Allergies REASON FOR VISIT checkup and f/u on labs Medications Medication SIG (Take, Route, Fr equency, Duration) Notes Start Date End Date Status Pen Kinderhook 16 31G X 8 MM as directed once daily Activ e Lantus SoloStar 100 UNIT/ML up to 70 units Subcutaneous once daily Active Farxiga 10 MG 1 tab(s) orally once a day Active metFORMIN HCl ER 500 MG 2 tab(s) orally 2 tabs in AM and 1 in PM Active Ozempic (0.25 or 0.5 MG/DOSE) 2 MG/3ML 0.5 mg Subcutaneous once a week Active Losartan Potassium 50 MG 1 tab(s) orally once a day Active Crestor 40 MG 1 tab(s) orally once a day Active OneTouch Ultra 1 TEST STRIP TEST 2 TIMES A DAY OR DIRECTED 10/06/2016 Active GLUCOMETER DIRECTED TEST QD 04/13/2015 Active Ozempic (0.25 or 0.5 MG/DOSE) 2 MG/3ML INJECT 0.25MG SUBCUTANEOUSLY ONCE A WEEK; Duration: 56 Active Vital Signs Blood pressure systolic 120 mm Hg 11/25/19 25 Blood pressure diastolic 70 mm Hg 025 Heart Rate 90 /min 11/25/2024 Height 66 in 11/25/2024 Weight 208.2 lbs 11/25/2024 BMI 33.60 kg/m2 11/25/2024 Encounters Encounter Location Date Provider Diagnosis [facility] [address] [facility] [address] [facility] [address] [place], [place] [id number] 11/25/2024 Lea Petit Hyperlipidemia associated with type 2 diabetes mellitus E11.69 ; Type 2 diabetes mellitus without complications E11.9 ; HTN (hypertension) I10 and Dyslipidemia E78.5 Assessments Encounter Date Diagnosis (ICD Code) Assessment Notes Treatment Notes Treatment Clinical Notes Section Notes 11/25/2024 Hyperlipidemia associated with type 2 diabetes mellitus (ICD-10 - E11.69) 11/25/2024 Type 2 diabetes mellitus without complications (ICD-10 - E11.9) 11/25/2024 HTN (hypertension) (ICD-10 - I10) 11/25/2024 Dyslipidemia (ICD-10 - E78.5) Plan Of Treatment Medication Medication Name Sig Start Date Stop Date Notes Pen Kinderhook 5/16 31G X 8 MM as directed once daily Lantus SoloStar 100 UNIT/ML up to 70 uni ts Subcutaneous once daily Farxiga 10 MG 1 tab(s) orally once a day metFORMIN HCl ER 500 MG 2 tab(s) orally 2 tabs in AM and 1 in PM Ozempic (0.25 or 0.5 MG/DOSE) 2 MG/3ML 0.5 mg Subcutaneous once a week Losartan Potassium 50 MG 1 tab(s) orally once a day Crestor 40 MG 1 tab(s) orally once a day Next Appt Details Follow Up: 6 Months, Reason: Provider Name:Lea Burks, 06/04/2025 10:45:00 AM, [address] [facility] [address] [facility], [address], [place], [phone], Progress Notes * ELKE MARTINEZDOB:1965 (59 yo F)Acc No.[id number]:11/25/2024 Progress Notes Patient: ELKE TRINH Provider: Lea Petit M.D. :1965 A ge:59 Y S ex:Female Date:11/25/2024 Address:[address] [place] [address] [place] , [id number] Subjective: * Chief Complaints: * 1 . Checkup and f/u on labs. * HPI: H PI: 59 year old female presents with c/o Patient is here today for?Pt is here today for a check up and to f/u on labs. Pt sts she also needs her prescriptions refilled. She does report some numbness in her feet consistent with neuropathy. E ndocrinology: She has been diligent with her diet since last visit and blood sugar readings at home have been much improved. She is tolerating the starting dose of Ozempic. She has not seen weight loss benefits. * ROS: A LLERGY: no C ough. n o R unny nose. G ASTROENTEROLOGY: no V omiting. n o D iarrhea. U ROLOGY: no D ifficulty urinating. n o B lood in urine. * Medical History: T ype 2 diabetes, HLP, HBP. * Surgical History: n one . * Hospitalization/Major Diagno stic Procedure: n one . * Family History: F ather: , hbp, diagnosed with Diabetes, Heart Disease. M other: alive, hbp. One sister with IDDM. * Social History: C URRENT TOBACCO USE S moking Status: P atient does NOT smoke. C affeine: no, frequency:. Home smoke detector use: yes. Alcohol: No. * Medications: T aking GLUCOMETER DIRECTED TEST QD , Taking OneTouch Ultra TEST STRIPS 1 TEST STRIP TEST 2 TIMES A DAY OR DIRECTED , Taking Crestor 40 MG Tablet 1 tab(s) orally once a day , Taking Losartan Potassium 50 MG Tablet 1 tab(s) orally once a day , Taking metFORMIN HCl ER 500 MG Tablet Extended Release 24 Hour 2 tab(s) orally 2 tabs in AM and 1 in PM , Taking Farxiga 10 MG Tablet 1 tab(s) orally once a day , Taking Lantus SoloStar 100 UNIT/ML Solution Pen-injector up to 70 units Subcutaneous once daily , Taking Pen Kinderhook 5/16 31G X 8 MM Miscellaneous as directed once daily , Taking Ozempic (0.25 or 0.5 MG/DOSE) 2 MG/3ML Solution Pen-injector INJECT 0.25MG SUBCUTANEOUSLY ONCE A WEEK , Medication List reviewed and reconciled with the patient * Allergies: N .K.D.A. Objective: * Vitals: W t:208.2, Temp:97.7, BP:120/70, HR:90, O2 Sat:98% on RA, Nurse:abdifatah, Ht: 66, BMI:33.60. * Examination: G eneral Examination: General Appearance: p leasant, NAD. . N jessy: supple, no lymphadenopathy, no carotid bruits. H eart: RSR. L ungs: c lear to auscultation. N eurologic Exam: alert and oriented. E xtremities: no leg edema. ? * Physical Examination: L ABS: See labs r eviewed with patient. Lipids are at goal.? A1c has markedly improved from 11.3-7 point.. Assessment: * Assessment: 1. H yperlipidemia associated with type 2 diabetes mellitus - E11.69 (Primary) 2 . T ype 2 diabetes mellitus without complications - E11.9 3 . H TN (hypertension) - I10 4 . D yslipidemia - E78.5 Plan: * Treatment: 2. H TN (hypertension) Refill Losartan Potassium Tablet, 50 MG, 1 tab(s), orally, once a day, 90, Refills 1. 3. D yslipidemia Refill Crestor Tablet, 40 MG, 1 tab(s), orally, once a day, 90, Refills 1. * Procedure Codes: 3 051F HG A1C>EQUAL 7.0%<8.0%, 3074F SYST BP LT 130 MM HG, 3078F DIAST BP < 80 MM HG * Follow Up: 6 Months * Images: Billing Information: * Visit Code: 16072 Office Visit, Est Pt., Level 3. * Procedure Codes: 3051F HG A1C>EQUAL 7.0%<8.0%. 3074F SYST BP LT 130 MM HG. 3078F DIAST BP < 80 MM HG. * Electronic signature of Lea Petit MD on 05/28/2025 at 08:53 AM EDT Sign off status: Pending * Provider: Lea Petit M.D. Date: 0 11/25/2024 Generated for Printi ng/Faalfg/eTransmitting on: 0 05/28/2025 08:53 AM EDT History and Physical Notes * HPI (History of Present Illness) Category Sub-Category Detail Notes Category Not es HPI Patient is here toda y for Pt is here today for a check up and to f/u on labs. Pt sts she also needs her prescriptions refilled She does report some numbness in her feet consistent with neuropathy. Physical Examination Category Sub-Category Detail Notes Section Note s LABS See labs reviewed with taj abarca. Lipids are at goal. A1c has markedly improved from 11.3-7 point. Examination Category Sub-Category Detail Notes Category Not es General Examination Heart: RSR Lungs: clear to auscultatio n Extremities: no leg edema General Appearance: pleasant, NAD. Neurologic Exam: alert and oriented Neck: supple, no lymphaden opathy, no carotid bruits
--- OUTSIDE RECORDS SUMMARY | 2025-01-29 07:30 | XMS_ITS ---
Author Organization [facility] Address [address] [facility] [address] [place] [id number] Care Team Providers Care Top Dyeing Machine Loader Name Role Phone Lea Petit Primary Care Provider Sheila Moreno Unavailable [phone] Allergies No Known Allergies Results Component Value Reference Range Notes H-Cardiac Enzymes Reviewed date:01/30/2025 04:15:02 PM Interpretation: Performing Lab: Notes/Report: CK 52 30-135 U/L CKMB 0.4 0.0-2.03 ng/ml CKMB INDEX 0.8 0-4.0 U/L TROP < 0.01 0.00-0.034 ng/ml <0.012-0.034 ng/mL NORMAL 0.035 - >0.120 ng/mL ELEVATED* *Serial testing recommended. A rise and fall with peak greater than 0.6 ng/mL may indicate acute myocardial infarction, but is not independently diagnostic. Clinical correlation is necessary. *ALERT* High levels of Biotin can falsely depress Troponin results. Many dietary supplements promoted for hair, skin, and nail benefits contain biotin levels up to 650 times the recommended daily intake of biotin. In addition to dietary supplements, Biotin is occasionally prescribed for medical conditions. EKG with rhythm strip Reviewed date:02/03/2025 09:49:28 PM Interpretation: Performing Lab: Notes/Report: REASON FOR VISIT pain in chest ,neck and arm Medications Medication SIG (Take, Route, Frequency, Duration) Notes Start Date End Date Status Medrol 4 MG as directed orally d aily; Duration: 6 days 01/29/2025 Active Lantus SoloStar 100 UNIT/ML up to 70 uni ts Subcutaneous once daily Active Cyclobenzaprine HCl 5 MG 1 tablet Orally three times a day as needed 01/29/2025 Active Pen [place] 02/27 31G X 8 MM as directed once daily Activ e Ozempic (0.25 or 0.5 MG/DOSE) 2 MG/3ML 0.5 mg Subcutaneous once a week Active Losartan Potassium 50 MG 1 tab(s) orally once a day Active metFORMIN HCl ER 500 MG 2 tab(s) orally 2 tabs in AM and 1 in PM Active Farxiga 10 MG 1 tab(s) orally once a day Active Ozempic (0.25 or 0.5 MG/DOSE) 2 MG/3ML INJECT 0.25MG SUBCUTANEOUSLY ONCE A WEEK; Duration: 56 Active Crestor 40 MG 1 tab(s) orally once a day Active GLUCOMETER DIRECTED TEST QD 04/13/2015 Active [employer] Ultra 1 TEST STRIP TEST 2 TIMES A DAY OR DIRECTED 10/06/2016 Active Problems Problem Type SNOMED Code ICD Code Onset Dates Problem Status W/U Status Risk Notes Problem Obese class I (750746829624 [id number]) BMI 33.0-33.9,a dult (Z68.33) Active confirmed Vital Signs Blood pressure systolic 150 mm Hg 01/30/20 25 Blood pressure diastolic 100 mm Hg 025 Heart Rate 104 /min 01/29/2025 Height 66 in 01/29/2025 Weight 204.8 lbs 01/29/2025 BMI 33.05 kg/m2 01/29/2025 Encounters Encounter Location Date Provider Diagnosis [facility] [address] [facility] [address] [place] [address], [place] [id number] 01/29/2025 Sheila Crowdy Chest pain, unspecif ied type R07.9 ; Costochondritis M94.0 ; Elevated blood pressure reading R03.0 and BMI 33.0-33.9,adult Z68.33 Assessments Encounter Date Diagnosis (ICD Code) Assessment Notes Treatment Notes Treatment Clinical Notes Section Notes 01/29/2025 Chest pain, unspecified type (ICD-10 - R07.9) 01/29/2025 Costochondritis (ICD-10 - M94.0) 01/29/2025 Elevated blood pressure reading (ICD-10 - R03.0) 01/29/2025 BMI 33.0-33.9,adult (ICD-10 - Z68.33) Plan Of Treatment Medication Medication Name Sig Start Date Stop Date Notes Medrol 4 MG as directed orally d aily; Duration: 6 days 01/29/2025 Cyclobenzaprine HCl 5 MG 1 tablet Orally three times a day as needed 01/29/2025 Next Appt Details Follow Up: via phone to repo rt test results, Reason: Provider Name:Lea Swenson et, 06/04/2025 10:45:00 AM, [address], [address], [place], [place], [id number], Progress Notes * ELKE MARTINEZDOB:1965 (59 yo F)Acc No.[id number]:01/29/2025 Progress Notes Patient: ELKE TRINH Provider: LELO Mendosa :1965 A ge:59 Y S ex:Female Date:01/29/2025 Address:[address] [place] [address] [facility] [place], [id number] Pcp:Lea Petit Subjective: * Chief Complaints: * 1 . Pain in chest ,neck and arm. * HPI: C ardiology: The pt states she started last Sunday with c/o a popping in her in the left side of her chest when bending over to put on her socks. Pt states the pain is now going up into her neck and down the left arm. Pt states she has tried Ibuprofen 200 mg two tablets this morning without relief. Pt states the pain is much worse with deep breaths, laying down and leaning forward. 59 year old female presents with c/o Chest Pain. Denies : Short of Breath. D enies : Dizziness. D enies : Palpitations. * ROS: D ERMATOLOGY: no R mark. n o H lion. G ASTROENTEROLOGY: no N ausea. n o V omiting. n o D iarrhea.? U ROLOGY: no D ifficulty urinating. n o B lood in urine. * Medical History: T ype 2 diabetes, HLP, HBP. * Surgical History: n one . * Hospitalization/Major Diagno stic Procedure: n one . * Family History: F ather: , hbp, diagnosed with Heart Disease, Diabetes. M other: alive, hbp. One sister with IDDM. * Social History: C URRENT TOBACCO USE S moking Status: P atient does NOT smoke. C affeine: no, frequency:. Home smoke detector use: yes. Alcohol: No. * Medications: T aking GLUCOMETER DIRECTED TEST QD , Taking OneTouch Ultra TEST STRIPS 1 TEST STRIP TEST 2 TIMES A DAY OR DIRECTED , Taking Ozempic (0.25 or 0.5 MG/DOSE) 2 MG/3ML Solution Pen-injector INJECT 0.25MG SUBCUTANEOUSLY ONCE A WEEK , Taking Crestor 40 MG Tablet 1 [...] units Subcutaneous once daily , Taking Pen [place] 5/16 31G X 8 MM Miscellaneous as directed once daily , Taking Ozempic (0.25 or 0.5 MG/DOSE) 2 MG/3ML Solution Pen-injector 0.5 mg Subcutaneous once a week , Medication List reviewed and reconciled with the patient * Allergies: N .K.D.A. Objective: * Vitals: W t:204.8, Temp:98.2, BP:150/100, HR:104, Nurse:MAUDE, Ht: 66, BMI:33.05. * Examination: G eneral Examination: General Appearance: N AD. N jessy: s upple, no lymphadenopathy, ttp along the left trapezius muscle. C hest: n ormal shape and expansion, ttp along the left chest wall, pain with deep breathing. H eart: R SR. L ungs: c lear to auscultation. A bdomen: bowel sounds present, soft and nontender. Assessment: * Assessment: 1. C hest pain, unspecified type - R07.9 (Primary) 2 . C ostochondritis - M94.0 3 . E levated blood pressure reading - R03.0 4 . B NV 33.0-33.9,adult - Z68.33 Plan: * Treatment: Value Reference Range C K 52 30-135 - U/L * C KMB 0.4 0.0-2.03 - ng/ml * C KMB INDEX 0.8 0-4.0 - U/L * T ROP < 0.01 0.00-0.034 - ng/ml * Sheila Moreno 01/30/2025 1: 50:53 PM > see TE ?Imaging: EKG with rhythm strip (Performed Date - 01/29/2025)* Sheila Moreno 02/03/2025 9: 49:17 PM > already discussed with patient 2.?Costochondritis? Start Medrol Tablet Therapy Pack, 4 MG, as directed, orally, daily, 6 days, 1, Refills 0;?Start Cyclobenzaprine HCl Tablet, 5 MG, 1 tablet, Orally, three times a day as needed, 30, Refills 1. ? * Procedure Codes: 3 077F SYST BP = 140 MM HG6 IT, 3080F DIAST BP = 90 MM HG * Follow Up: v ia phone to report test results * Images: Billing Information: * Visit Code: 65038 Office Visit, Est Pt., Level 3. * Procedure Codes: 3077F SYST BP = 140 MM HG6 IT. 3080F DIAST BP = 90 MM HG. * Electronic signature of LELO Carlin on 05/28/2025 at 08:52 AM EDT Sign off status: Pending * Provider: LELO Mendosa Date: 0 01/29/2025 Generated for Christelle vargas/Mychal/eTransmitting on: 0 05/28/2025 08:52 AM EDT History and Physical Notes * HPI (History of Present Illness) Category Sub-Category Detail Notes Category Not es Cardiology Short of Breath Chest Pain Palpitations Dizziness Examination Category Sub-Category Detail Notes Category Not es General Examination Heart: RSR Lungs: clear to auscultatio n Abdomen: bowel sounds present , soft and nontender General Appearance: NAD Neck: supple, no lymphaden opathy, ttp along the left trapezius muscle Chest: normal shape and exp ansion, ttp along the left chest wall, pain with deep breathing
--- OUTSIDE RECORDS SUMMARY | 2025-05-22 05:12 | XMS_ITS ---
Author Organization [facility] Address [address] [facility] [address] [id number] Care Team Providers Care Lozenge Maker Helper Name Role Phone Lea Petit Primary Care Provider REASON FOR VISIT Refills/Lab Order Medications Medication SIG (Take, Route, Frequency, Duration) Notes Start Date End Date Status Ozempic (0.25 or 0.5 MG/DOSE) 2 MG/3ML 0.5 mg Subcutaneous once a week; Duration: 28 days Active Encounters Encounter Location Date Provider Diagnosis [facility] [address] [id number] 05/22/2025 Lea Petit HTN (hypertension) I 10 ; Type 2 diabetes mellitus without complications E11.9 ; Dyslipidemia E78.5 and Hyperlipidemia associated with type 2 diabetes mellitus E11.69 Assessments Encounter Date Diagnosis (ICD Code) Assessment Notes Treatment Notes Treatment Clinical Notes Section Notes 05/22/2025 HTN (hypertension) (ICD-10 - I10) 05/22/2025 Type 2 diabetes mellitus without complications (ICD-10 - E11.9) 05/22/2025 Dyslipidemia (ICD-10 - E78.5) 05/22/2025 Hyperlipidemia associated with type 2 diabetes mellitus (ICD-10 - E11.69) Plan Of Treatment Medication Medication Name Sig Start Date Stop Date Notes Ozempic (0.25 or 0.5 MG/DOSE) 2 MG/3ML 0.5 mg Subcutaneous once a week; Duration: 28 days Pending Test Test Name Order Date H-CBC 05/22/2025 H-Lipid Panel 05/22/2025 H-CMP 05/22/2025 H-Glycohemoglobin A1C 05/22/2025 Next Appt Details Provider Name:Lea Burks, 06/04/2025 10:45:00 AM, [address], [address], [place], [place], [id number], Progress Notes * ELKE MARTINEZDOB:1965 (59 yo F)Acc No.[id number]:05/22/2025 Patient: ELKE TRINH :1965 A ge:59 Y S ex:Female Address:[address] [place] [address] [address] , [place] [address] * Refills Refill Ozempic (0.25 or 0.5 MG/DOSE) Solution Pen-injector, 2 MG/3ML, Subcutaneous, 3 Milliliter, 0.5 mg, once a week, 28 days, Refills=0 Subjective: * Chief Complaints: * R efills/Lab Order * Medical History: * Surgical History: * Hospitalization/Major Diagno stic Procedure: * Medications: Objective: * Vitals: * Physical Examination: Assessment: * Assessment: 1. H TN (hypertension) - I10 2 . T ype 2 diabetes mellitus without complications - E11.9 3 . D yslipidemia - E78.5 4 . H yperlipidemia associated with type 2 diabetes mellitus - E11.69 Plan: * Treatment: 2. T ype 2 diabetes mellitus without complications L AB: H-Glycohemoglobin A1C 3. H yperlipidemia associated with type 2 diabetes mellitus L AB: H-Lipid Panel 4. O thers Refill Ozempic (0.25 or 0.5 MG/DOSE) Solution Pen-injector, 2 MG/3ML, 0.5 mg, Subcutaneous, once a week, 28 days, 3 Milliliter, Refills 0. * Procedure Codes: * true * Date: Generated for Printi ng/Faxing/eTransmitting on: 0 05/28/2025 08:53 AM EDT
--- OUTSIDE RECORDS SUMMARY | 2025-05-28 08:53 | XMS_ITS | Patient Health Record ---
Author Organization [facility] Address [address] [facility] [address] [place] [id number] Care Team Providers Care Recovery Rn Name Role Phone Lea Petit Primary Care Provider [phone] Sheila Moreno Unavailable [phone] Allergies No Known Allergies Results Component Value [...] date:02/03/2025 09:49:28 PM Interpretation: Performing Lab: Notes/Report: H-Creatinine Urine, random Reviewed date:11/25/2024 10:16:47 PM Interpretation:Normal Performing Lab: Notes/Report: UCREAT 76 Not Estab. mg/dL Random urine reference range not established. 24 hour urine samples recommended. H-MICROALB Reviewed date:11/25/2024 10:16:47 PM Interpretation:Normal Performing Lab: Notes/Report: MICROALB 14.900 0-16.7 mg/L Mammogram Reviewed date:10/31/2024 02:26:35 PM Interpretation: Performing Lab: Notes/Report: H-Glycohemoglobin A1C Reviewed date:11/25/2024 10:16:48 PM Interpretation:7.9 Performing Lab: Notes/Report: HGBA1C 7.9 4.0-6.0 % < 6% Non-Diabetic Level < 7% Controlled Diabetic Level > 8% Poorly Controlled Diabetic Level H-CMP Reviewed date:11/25/2024 10:16:48 PM Interpretation:gap 17.9, gluc 130, a/g 2 Performing Lab: Notes/Report: NA 139 136-145 mmol/L K 3.9 3.5-5.1 mmoL/L CL 99 98-107 mmol/L CO2 26 22.0-30.0 mmol/L GAP 17.9 5-15 mEq/L BUN 17 7-17 mg/dl CREATT 0.60 0.52-1.04 mg/dl GFRAA 123 >60 ML/MIN EGFR 102 >60 ml/min GLU 130 74-100 mg/dl CA 9.4 8.4-10.2 mg/dl BILIT 0.3 0.2-1.3 mg/dl AST 29 14-36 U/L ALT 27 12-78 U/L TP 6.6 6.3-8.2 g/dl ALB 4.4 3.5-5.0 g/dl GLOB 2.2 1.3-3.2 g/dL AGRATIO 2.0 1.1-1.8 ALP 54 38-126 U/L H-Lipid Panel Reviewed date:11/25/2024 10:16:48 PM Interpretation:chol 118, dldl 52.74, hdl 35 Performing Lab: Notes/Report: Patient Fasting? Y TRIG 121 30-150 mg/dl CHOL 118 140-200 mg/dl DLDL 52.74 100-129 mg/dL VLDL 24 0-40 mg/dL HDL 35 40-60 mg/dl CHLHDL 3.4 1-3.5 H-Microalbumine/Creatinine Reviewed date:11/22/2024 01:22:54 PM Interpretation: Performing Lab: Notes/Report: H-CBC Reviewed date:11/25/2024 10:16:48 PM Interpretation:Normal Performing Lab: Notes/Report: WBC 5.6 4.8-10.8 K/mm3 RBC 4.69 4.20-5.40 M/mm3 HGB 13.5 12.2-16.2 g/dL HCT 41.9 37.0-47.0 % MCV 89.3 81-99 fl MCH 28.8 27.0-31.2 pg MCHC 32.2 31.8-35.4 g/dL RDW 12.7 11.5-17.5 % PLT 281 142-424 K/mm3 MPV 9.7 7.4-10.4 fl NE% 55.3 37.0-80.0 % LY% 32.0 10-50 % MO% 7.6 1.7-9.3 % EO% 3.8 0.1-12.0 % BA% 0.9 0.1-2.0 % NE# 3.1 1.8-7.8 K/mm3 LY# 1.8 0.7-4.5 K/mm3 MO# 0.4 0.1-1.0 K/mm3 EO# 0.2 0.0-0.4 K/mm3 BA# 0.1 0-0.2 K/mm3 Reason For Referral Reason abnormal EKG Diagnosis 1 Abnormal EKG (R94.31 ) [facility] Referring Provider First Name Sheila Referring Provider Last Name Tiffanie Referring Provider Speciality Physician Loom Operator [facility] Address [address] [place] [address], [address],[place], [id number], Referred Provider Specialty Cardiovascul ar Disease General Notes Rosa Rodriguez 2024 09:44:30 AM > [facility] CardiologyJennifer Brynn 02/02/2025 10:28:34 AM > appt is scheduled for 02/03/2025 Referral Priority Routine Medications Medication SIG (Take, Route, Frequency, Duration) Notes Start Date End Date Status Rosuvastatin Calcium 40 MG Take 1 tablet by mouth once daily; Duration: 90 Active Losartan Potassium 50 MG Take 1 tablet b y mouth once daily; Duration: 90 Active Farxiga 10 MG 1 tab(s) orally once a day Active Medrol 4 MG as directed orally daily; Duration: 6 days 01/29/2025 Active GLUCOMETER DIRECTED TEST QD 04/13/2015 Active metFORMIN HCl ER 500 MG 2 tab(s) orally 2 tabs in AM and 1 in PM Active OneTouch Ultra 1 TEST STRIP TEST 2 TIMES A DAY OR DIRECTED 10/06/2016 Active Lantus SoloStar 100 UNIT/ML inject up to 70 units Subcutaneous once daily 03/06/2025 Active Cyclobenzaprine HCl 5 MG 1 tablet Orally three times a day as needed 01/29/2025 Active Pen [place] 02/27 31G X 8 MM as directed once daily Active Ozempic (0.25 or 0.5 MG/DOSE) 2 MG/3ML 0.5 mg Subcutaneous once a week; Duration: 28 days Active Immunizations Vaccine Route Administration Date Status Comme nts COVID 19 Pfizer Unknown 01/02/2021 Administered COVID 19 Pfizer Unknown 01/23/2021 Administered Flublok Unknown 08/12/2021 Administered Fluzone PF Quad (6-35 months) Unknown 08/10/2022 Administered ppd ID Intradermal 01/04/2024 Administered Tetanus Tdap-Adacel (over 7yrs) IM Intramuscular 12/05/2019 Administered xFlu shot- 6months-36 months of sbm-XPGS-EWCG-trivalent Unknown 08/11/2017 Administered Problems Problem Type SNOMED Code ICD Code Onset Dates Problem Status W/U Status Risk Notes Problem Type II diabetes mellitus without complication (877924646) Type 2 diabetes mellitus without complications (E11.9) Active confirmed Problem Hypertension (78506406) HTN (hypertension) (I10) Active confirmed Problem Obese class I (049842043246698) BMI 33.0-33.9,adult (Z68.33) Active confirmed Problem Primary generalised osteoarthritis (629374590) Primary generalized (osteo)arthritis (M15.0) Active confirmed Problem Hyperlipidemia due to type 2 diabetes mellitus (disorder) (231441076656507) Hyperlipidemia associated with type 2 diabetes mellitus (E11.69) Active confirmed Problem Dyslipidemia (152315593) Dyslipidemia (E78.5) Active confirmed Vital Signs Heart Rate 104 /min 01/29/2025 Blood pressure diastolic 100 mm Hg 01/29/2025 Height 66 in 01/29/2025 Blood pressure systolic 150 mm Hg 01/29/2025 Weight 204.8 lbs 01/29/2025 BMI 33.05 kg/m2 01/29/2025 Encounters Encounter Location Date Provider Diagnosis [facility] [address] [facility] [address] [place] [phone] 05/29/2024 R Solis Marisabel Hyperlipidemia associated with type 2 diabetes mellitus E11.69 ; Type 2 diabetes mellitus without complications E11.9 ; HTN (hypertension) I10 and Dyslipidemia E78.5 [facility] [address] [facility] [address] [place], [place] [phone] 11/25/2024 R Solis Marisabel Hyperlipidemia associated with type 2 diabetes mellitus E11.69 ; Type 2 diabetes mellitus without complications E11.9 ; HTN (hypertension) I10 and Dyslipidemia E78.5 [facility] [address] [place], [place] [id number] 01/29/2025 Sheila Crowdy Chest pain, unspecif ied type R07.9 ; Costochondritis M94.0 ; Elevated blood pressure reading R03.0 and BMI 33.0-33.9,adult Z68.33 [facility] [address] [facility] [address] [place], [place] [id number] 07/10/2024 R Solis Marisabel [facility] [address] [facility] [address] [place], [place] [id number] 08/15/2024 R Solis Marisabel [facility] [address] [facility] [address] [place], [place] [id number] 10/13/2024 R Solis Marisabel [facility] [address] [facility] [address] [place], [place] [id number] 11/19/2024 R Solis Marisabel HTN (hypertension) I 10 ; Type 2 diabetes mellitus without complications E11.9 and Dyslipidemia E78.5 [facility] [address] [facility] [address] [place], [place] [id number] 12/15/2024 R Solis Marisabel [facility] [address] [facility] [address] [place], [place] [id number] 01/30/2025 Sheila Crowdy [facility] [address] [place], [place] [id number] 03/06/2025 R Solis Limat [facility] [address] [place], [place] [id number] 03/06/2025 R Solis Marisabel [facility] [address] [place], [place] [id number] 04/22/2025 R Solis Marisabel [facility] [address] [place], [place] [id number] 05/22/2025 R Solis Marisabel HTN (hypertension) I 10 ; Type 2 diabetes mellitus without complications E11.9 ; Dyslipidemia E78.5 and Hyperlipidemia associated with type 2 diabetes mellitus E11.69 Assessments Encounter Date Diagnosis (ICD Code) Assessment Notes Treatment Notes Treatment Clinical Notes Section Notes 05/29/2024 Type 2 diabetes mellitus without complications (ICD-10 - E11.9) She is instructed to continue titrating her Lantus until her fasting blood sugar is consistently less than 150 05/29/2024 Hyperlipidemia associated with type 2 diabetes mellitus (ICD-10 - E11.69) 11/19/2024 Type 2 diabetes mellitus without complications (ICD-10 - E11.9) 11/19/2024 HTN (hypertension) (ICD-10 - I10) 11/25/2024 Type 2 diabetes mellitus without complications (ICD-10 - E11.9) 11/25/2024 Hyperlipidemia associated with type 2 diabetes mellitus (ICD-10 - E11.69) 01/29/2025 Costochondritis (ICD-10 - M94.0) 01/29/2025 Chest pain, unspecified type (ICD-10 - R07.9) 05/22/2025 HTN (hypertension) (ICD-10 - I10) 01/29/2025 Elevated blood pressure reading (ICD-10 - R03.0) 05/22/2025 Type 2 diabetes mellitus without complications (ICD-10 - E11.9) 11/25/2024 HTN (hypertension) (ICD-10 - I10) 11/19/2024 Dyslipidemia (ICD-10 - E78.5) 05/29/2024 HTN (hypertension) (ICD-10 - I10) 05/29/2024 Dyslipidemia (ICD-10 - E78.5) 11/25/2024 Dyslipidemia (ICD-10 - E78.5) 01/29/2025 BMI 33.0-33.9,adult (ICD-10 - Z68.33) 05/22/2025 Dyslipidemia (ICD-10 - E78.5) 05/22/2025 Hyperlipidemia associated with type 2 diabetes mellitus (ICD-10 - E11.69) Plan Of Treatment Pending Test Test Name Order Date H-CBC 05/22/2025 H-Lipid Panel 05/22/2025 H-CMP 05/22/2025 H-Glycohemoglobin A1C 05/22/2025 Next Appt Details Provider Name:Lea Burks, 06/04/2025 10:45:00 AM, [address] [facility], [address], [place], [place], [phone], Insurance Providers Payer Name Payer Address Payer Phone Subscriber Number Group Number Insured Name Patient Relationship to Insured Coverage Start Date Coverage End Date [employer] [address] [place] [address] [id number] ELKE MARTINEZ Self - patient is the insured Medications Administered Medication Instructions Date of Administration Dosage Notes Dexamethasone 02/17/2019 1 mL Medical (General) History Medical History History ICD Code Type 2 diabetes HLP HBP Surgical History Surgery Date(Month/Year) none Hospitalization History Reason Date(Month/Year) none
--- OUTSIDE RECORDS SUMMARY | 2025-05-28 08:53 | XMS_ITS | Clinical Summary ---
[facility] Address [address] [place] [address] Care Team Providers Care Horseradish Maker Name Role Phone Hay Petit MD Primary Care Provider Allergies No known active allergies Medications losartan (COZAAR) 50 MG tablet Take 1 tablet by mouth Daily. 4 Active rosuvastatin (CRESTOR) 40 MG tablet Take 1 tablet by mouth Daily. 4 Active Farxiga 10 MG tablet Take 10 mg by mouth Daily. 4 Active metFORMIN ER (GLUCOPHAGE-XR ) 500 MG 24 hr tablet Take 2 tablets by mouth Daily. with food 4 Active Lantus SoloStar 100 UNIT/ML injection pen 4 Active Ozempic, 0.25 or 0.5 MG/DOSE, 2 MG/3ML solution pen-injector INJECT 0.25MG SUBCUTANEOUSLY ONCE A WEEK 4 Active Active Problems No known active problems Family History Medical History Relation Name Comments Breast cancer Neg Hx Ovarian cancer Neg Hx Social History Tobacco Use Types Packs/Day Years Used Date Smoking Tobacco: Never Smokeless Tobacco: Never Tobacco Cessation:Counseling Given: Not Answered Alcohol Use Standard Drinks/Week Comments Not Currently 0 (1 standard drink = 0.6 oz pur e alcohol) Comments No Sex and Gender Information Value Date Recorded Sex Assigned at Not on file Legal Sex Female 1:09 PM EDT Gender Identity Not on file Sexual Orientation Not on file Last Filed Vital Signs Vital Sign Reading Time Taken Comments Blood Pressure 122/86 10/13/2024 1:39 PM EST Pulse - - Temperature - - Respiratory Rate - - Oxygen Saturation - - Inhaled Oxygen Concentration - - Weight 92.1 kg (203 lb) 10/13/2024 1:39 PM EST Height 167.6 cm (5' 6 ) 10/13/2024 1:39 PM EST Body Mass Index 32.77 10/13/2024 1:39 PM EST Plan of Treatment Health Maintenance Due Date Last Done Comments COLOGUARD 2009 COLON CANCER SCREENING 5 YEA R SIGMOIDOSCOPY 2009 COLONOSCOPY 2009 [address] CANCER SCREENING 2009 CT COLONOGRAPHY 2009 FECAL OCCULT BLOOD TEST 2009 FIT Testing (1 year) 2009 Pneumococcal Vaccine 50+ (1 of 1 - PCV) 2014 ZOSTER VACCINE (1 of 2) 2014 COVID-19 Vaccine (3 - 2023-2 5 season) 2024 01/23/2021, 01/02/2021 ANNUAL PHYSICAL 10/13/2024 HEPATITIS C SCREENING 10/13/2024 INFLUENZA VACCINE 07/15/2025 07/23/2024, , 08/12/2021, Additional history exists Annual Gynecologic Pelvic an d Breast Exam 10/14/2025 10/13/2024 MAMMOGRAM 10/31/2026 10/31/2024, 05/0 10/2018, 01/22/2019 PAP SMEAR 10/13/2027 10/13/2024 TDAP/TD VACCINES (2 - Td or Tdap) 12/05/2029 020 Procedures Procedure Name Priority Date/Time Associated Diagnosis Comments MAMMO DIAGNOSTIC DIGITAL TOMOSYNTHESIS BILATERAL W CAD Routine 10/31/2024 1:49 PM EST Abnormal mammogram LIQUID-BASED PAP SMEAR WITH HPV GENOTYPING REGARDLESS OF INTERPRETATION, [facility] ([facility]) Routine 10/13/2024 4:17 PM EST Women's annual routine gynecological examination from Last 3 Months or Most Recently Relevant to Health Maintenance Results * Mammo Diagnostic Digital Tomosynthesis Bilateral With CAD (10/31/2024 1:49 PM EST) Anatomical Region Laterality Modality Breast Bilateral Mammography 10/31/2024 1:53 PM EST Impressions 10/31/2024 1:54 PM EST BI-RADS 2, benign findings. RECOMMENDATION: Annual routine screening mammography is advised. The standard false-negative rate of mammography is between 10% and 25%. Complex patterns or increased breast density will markedly elevate the false-negative rate of mammography. A results letter, in lay terminology, will be given to the patient at the conclusion of the exam. This report was finalized on 10/31/2024 1:[address] Jagdeep Humphrey MD. Narrative 10/31/2024 1:54 PM EST EXAMINATION:MAMMO DIAGNOSTIC DIGITAL TOMOSYNTHESIS BILATERAL W CAD- HISTORY: 58-year-old female for follow-up status post right benign stereotactic core biopsy performed on 02/26/2019 with results of hyalinized fibroadenoma with associated calcifications. Bilateral exam. TECHNIQUE: 2D and 3D bilateral MLO and cc views were obtained. CAD was utilized. COMPARISON: Prior studies dating back to 01/22/2019. FINDINGS: The breast tissue is heterogeneously dense, which may obscure small masses. Stable benign-appearing calcifications and biopsy tissue markers are noted bilaterally. No worrisome masses, calcifications, or architectural distortion is identified bilaterally. Monica Marvin MD IM MAMMOGRAPHY ORDERABLES Final Result * LIQUID-BASED PAP SMEAR WITH HPV GENOTYPING REGARDLESS OF INTERPRETATION ([facility]) (10/13/2024 4:17 PM EST) Reference Lab Report [facility] [address] [place] [id number] or [phone] Hay Velez M.D., Estimator Printing Plate Making PATIENT NAME [facility] [id number] AGE SEX SSN CLIENT REF # [id number] ([place] 58 1965 F [id number] Sonu MCKEON REQUESTING [employer] [place] [address] MONICA MARVIN DATE COLLECTED DATE RECEIVED DATE REPORTED 10/13/2024 10/14/2024 10/16/2024 ThinPrep Pap with Cytyc Imaging DIAGNOSIS: Negative for intraepithelial lesion or malignancy Multiple factors can influence accuracy of Pap tests; therefore, screening at regular intervals is necessary for early cancer detection. COMMENT: Benign cellular changes associated with atrophy are present. SPECIMEN ADEQUACY: SATISFACTORY FOR EVALUATION Transformation zone is present. SOURCE OF SPECIMEN: CERVICAL/ENDOCERV ICAL SLIDES: 1 CLINICAL HISTORY: Women's annual routine gynecological examination Abnormal mammogram Vulvar lesion Post menopausal HPV HR-HPV POOL: Negative The Aptima HPV assay is an in vitro nucleic acid amplification test for the qualitative detection of E6/E7 viral messenger RNA from 14 high risk types of HPV in cervical specimens. The high risk HPV types detected include: 16, 18, 31, 33, 35, 39, 45, 51, 52, 56, 58, 59, 66, 68 ELEMENTARY ESL TEACHER: LEMUEL MOURA (ASCP) CPT CODES: 80433, 21286 10/16/2024 12:57 PM EST [facility] ThinPrep Vial Collection / Unknown 10/13/2024 4:17 PM EST 10/13/2024 4:17 PM EST us Monica Marvin MD PATHOLOGY/CYTOLOGY ORDERABLES Fi nal Result [facility]
[address] [place] [address], from Last 3 Months or Most Recently Relevant to Health Maintenance Insurance [facility] PPO Care Teams Horseradish Maker Relationship Specialty Start Date End Date Hay Petit MD [address] [place] [facility] [address] [place] [address] PCP - General Family Medicine 01/22/19
[2025-05-28 09:27] LABS: Hematocrit 41.5 % (37.0-47.0); Hemoglobin 13.2 g/dL (12.2-16.2); Immature Granulocytes % 0.2 %; Mean Corpuscular HGB Conc 31.8 g/dL (31.8-35.4); Mean Corpuscular Hemoglobin 28.7 pg (27.0-31.2); Mean Corpuscular Volume 90.2 fl (81-99); Nucleated Red Blood Cells % 0 %; Platelet Count 260 K/mm3 (142-424); Red Blood Count 4.60 M/mm3 (4.20-5.40); Red Cell Distribution Width-SD 42.7 fL; White Blood Count 5.6 K/mm3 (4.8-10.8)
[2025-05-28 09:45] LABS: Hemoglobin A1C 8.0 % (4.0-6.0)
[2025-05-28 10:26] LABS: Albumin Level 4.3 g/dl (3.5-5.0); Chloride 102 mmol/L (98-107); Sodium 138 mmol/L (136-145)
[2025-05-28 10:29] LABS: Alanine Aminotransferase 29 U/L (12-78); Albumin/Globulin Ratio 1.7 (1.1-1.8); Alkaline Phosphatase 67 U/L (38-126); Aspartate Amino Transferase 29 U/L (14-36); Bilirubin,Total 0.4 mg/dl (0.2-1.3); Blood Urea Nitrogen 13 mg/dl (7-17); Carbon Dioxide 26 mmol/L (22.0-30.0); Creatinine,Serum 0.60 mg/dl (0.52-1.04); Estimated Glomerular Filt Rate 102 ml/min (>60); GFR (African American) 123 ML/MIN (>60); Globulin 2.6 g/dL (1.3-3.2); Total Protein,Serum 6.9 g/dl (6.3-8.2)
[2025-05-28 10:30] LABS: Anion Gap 14.3 mEq/L (5-15); Calcium 9.4 mg/dl (8.4-10.2); Cholesterol 114 mg/dl (140-200); Glucose 127 mg/dl (74-100); HDL Cholesterol 42 mg/dl (40-60); Potassium 4.3 mmoL/L (3.5-5.1); Triglycerides 130 mg/dl (30-150)
== END 2025-05-28 23:59 | disposition home or self-care (01) ==
LOC: LAB 08:46
PROVIDERS: PCP Family Medicine; Visit Provider Family Medicine
DX: E11.9 Type 2 diabetes mellitus without complications (principal); I10 Essential (primary) hypertension
CPT/HCPCS: 36415; 80053; 80061; 83036; 85025